=== PATIENT | female | born 1935 | race Caucasian/White ===

== ENCOUNTER 2018-07-22 05:17 | Emergency (ER) | payer MEDICARE ==
[~2018-07-22] VITALS: Ht 177.8 cm; Wt 117.9 kg
--- NOTE | 2018-07-22 05:30 | PHYS DOC ---
Adult General Chief Complaint Chief Complaint: NAUSEA/VOMITING/DIARRHA HPI HPI Patient is a 83 year old f biba with cc of nausea and vomiting x two episodes. woke up felt some abdo discomfort like as though she was going to have some diarrhea. then went to bathroom and threw up a couple of times. no abdominal pain at this time. no chest pain but felt like her heart was racing, she does indeed have a pacemaker. pmh: afib, pacemaker. htn hyperlipidemia meds coumadin lisinopril statin, diltiazem Review of Systems Review of Systems Constitutional: feels warm Eyes: Denies change in visual acuity, redness, or eye pain [] HENT: Denies nasal congestion or sore throat [] Respiratory: Denies cough or shortness of breath [] Cardiovascular: No additional information not addressed in HPI [] GI: hpi. no actual diarrhea. Neurologic: Denies headache, focal weakness or sensory changes [] Endocrine: Denies polyuria or polydipsia [] All other systems were reviewed and found to be within normal limits, except as documented in this note. Current Medications Current Medications Current Medications Medications (Trade) Dose Ordered Sig/Hugh Start Time Stop Time Status Last Admin Dose Admin Potassium Chloride (Klor-Con) 20 meq 1X ONCE 07/22/18 07:15 07/22/18 07:16 DC 07/22/18 07:15 20 MEQ Sodium Chloride 500 ml @ 500 mls/hr 1X ONCE 07/22/18 06:00 07/22/18 06:59 DC 07/22/18 05:52 500 MLS/HR Allergies Allergies Allergies Coded Allergies Type Severity Reaction Last Updated Verified No Known Drug Allergies 07/22/18 No Physical Exam Physical Exam Constitutional: Well developed, well nourished, no acute distress, non-toxic appearance. [] HENT: Normocephalic, atraumatic, bilateral external ears normal, oropharynx moist, no oral exudates, nose normal. [] Eyes: PERRLA, EOMI, conjunctiva normal, no discharge. [] Neck: Normal range of motion, no tenderness, supple, no stridor. [] Cardiovascular irregular no definite murmurs noted. Lungs & Thorax: Bilateral breath sounds clear to auscultation [] Abdomen: Bowel sounds normal, soft, no tenderness, no masses, no pulsatile masses. [] Skin: Warm, dry, no erythema, no rash. [] Back: No tenderness, no CVA tenderness. [] Extremities: No tenderness, no cyanosis, no clubbing, ROM intact, one plus edema. Neurologic: Alert and oriented X 3, normal motor function, normal sensory function, no focal deficits noted. [] Psychologic: Affect normal, judgement normal, mood normal. [] Current Patient Data Vital Signs Vital Signs Date Time Temp Pulse Resp B/P (MAP) Pulse Ox O2 Delivery O2 Flow Rate FiO2 07/22/18 05:19 97.9 105 16 186/87 (120) 99 Room Air 97.9 Lab Values Laboratory Tests Test 07/22/18 05:35 07/22/18 06:20 White Blood Count 10.1 x10^3/uL (4.0-11.0) Red Blood Count 4.42 x10^6/uL (3.50-5.40) Hemoglobin 12.2 g/dL (12.0-15.5) Hematocrit 36.4 % (36.0-47.0) Mean Corpuscular Volume 82 fL (79-100) Mean Corpuscular Hemoglobin 28 pg (25-35) Mean Corpuscular Hemoglobin Concent 34 g/dL (31-37) Red Cell Distribution Width 16.7 % (11.5-14.5) H Platelet Count 203 x10^3/uL (140-400) Neutrophils (%) (Auto) 88 % (31-73) H Lymphocytes (%) (Auto) 7 % (24-48) L Monocytes (%) (Auto) 4 % (0-9) Eosinophils (%) (Auto) 1 % (0-3) Basophils (%) (Auto) 0 % (0-3) Neutrophils # (Auto) 8.8 x10^3uL (1.8-7.7) H Lymphocytes # (Auto) 0.7 x10^3/uL (1.0-4.8) L Monocytes # (Auto) 0.4 x10^3/uL (0.0-1.1) Eosinophils # (Auto) 0.1 x10^3/uL (0.0-0.7) Basophils # (Auto) 0.0 x10^3/uL (0.0-0.2) Platelet Estimate Pending Prothrombin Time 28.8 SEC (11.7-14.0) H Prothrombin Time INR 2.8 (0.8-1.1) H Sodium Level 140 mmol/L (136-145) Potassium Level 3.1 mmol/L (3.5-5.1) L Chloride Level 104 mmol/L (98-107) Carbon Dioxide Level 24 mmol/L (21-32) Anion Gap 12 (6-14) Blood Urea Nitrogen 23 mg/dL (7-20) H Creatinine 1.5 mg/dL (0.6-1.0) H Estimated GFR (Cockcroft-Gault) 33.2 BUN/Creatinine Ratio 15 (6-20) Glucose Level 131 mg/dL (70-99) H Calcium Level 8.9 mg/dL (8.5-10.1) Total Bilirubin 0.5 mg/dL (0.2-1.0) Aspartate Amino Transferase (AST) 19 U/L (15-37) Alanine Aminotransferase (ALT) 25 U/L (14-59) Alkaline Phosphatase 71 U/L (46-116) Troponin I Quantitative < 0.017 ng/mL (0.000-0.055) Total Protein 6.8 g/dL (6.4-8.2) Albumin 3.7 g/dL (3.4-5.0) Albumin/Globulin Ratio 1.2 (1.0-1.7) Lipase 52 U/L (73-393) L Urine Collection Type Unknown Urine Color Yellow Urine Clarity Clear Urine pH 6.5 Urine Specific Farley 1.020 Urine Protein 30 mg/dL (NEG-TRACE) Urine Glucose (UA) Negative mg/dL (NEG) Urine Ketones (Stick) Negative mg/dL (NEG) Urine Blood Negative (NEG) Urine Nitrite Negative (NEG) Urine Bilirubin Negative (NEG) Urine Urobilinogen Dipstick 0.2 mg/dL (0.2 mg/dL) Urine Leukocyte Esterase Trace (NEG) Urine RBC 0 /HPF (0-2) Urine WBC 1-4 /HPF (0-4) Urine Squamous Epithelial Cells Mod /LPF Urine Bacteria 0 /HPF (0-FEW) Urine Mucus Slight /LPF Laboratory Tests 07/22/18 05:35 Laboratory Tests 07/22/18 05:35 EKG EKG [] Interpretation Time: probable afib there is borderline st segments noted in v4-v6. Radiology/Procedures Radiology/Procedures [] Impressions: no definite pna or ptx noted. Course & Med Decision Making Course & Med Decision Making Pertinent Labs and Imaging studies reviewed. (See chart for details) []83 yo f s/p hysterectomy , pacemaker biba with vomiting and some now resolving abdo pain. broad ddx start with labs ekg/trop , u/a, lipase, normal saline. nausea improved after zofran by ems. broad ddx. plan for sign out to dr ma pending labwork and reevaluation Dragon Disclaimer Dragon Disclaimer This electronic medical record was generated, in whole or in part, using a voice recognition dictation system. Departure Departure Impression: Primary Impression: Nausea and vomiting Disposition: HOME, SELF-CARE Condition: STABLE Referrals: ALON RICHEY MD (PCP) Patient Instructions: Nausea and Vomiting Scripts Ondansetron Hcl (ZOFRAN) 4 Mg Tablet 4 MG PO PRN TID PRN for NAUSEA, #15 nausea/vomiting Prov: ROAN MA Jr. DO 07/22/18 Problem Qualifiers Primary Impression: Nausea and vomiting Vomiting type: unspecified Vomiting Intractability: non-intractable Qualified Codes: R11.2 - Nausea with vomiting, unspecified CATHERINE GOMEZ MD Jul 22, 2018 05:29 RONA MA Jr. DO Jul 22, 2018 08:46
[2018-07-22] MEDS ORDERED: IV NORMAL SALINE 500ML BAG 500 ML IV ONE (06:00)
[2018-07-22 06:02] LABS: CALCIUM 8.9 mg/dL (8.5-10.1); CREATININE 1.5 mg/dL (0.6-1.0); GFR 33.2; POTASSIUM 3.1 mmol/L (3.5-5.1)
[2018-07-22 06:03] LABS: BASO % 0 % (0-3); EOS # 0.1 x10^3/uL (0.0-0.7); EOS % 1 % (0-3); HEMATOCRIT 36.4 % (36.0-47.0); HEMOGLOBIN 12.2 g/dL (12.0-15.5); LYMPH # 0.7 x10^3/uL (1.0-4.8); LYMPH % 7 % (24-48); MEAN CORPUSCULAR HEMOGLOBIN 28 pg (25-35); MEAN CORPUSCULAR HGB CONC 34 g/dL (31-37); MEAN CORPUSCULAR VOLUME 82 fL (79-100); MONO # 0.4 x10^3/uL (0.0-1.1); MONO % 4 % (0-9); NEUT # 8.8 x10^3uL (1.8-7.7); NEUT % 88 % (31-73); PLATELET COUNT 203 x10^3/uL (140-400); RED BLOOD COUNT 4.42 x10^6/uL (3.50-5.40); RED CELL DISTRIBUTION WIDTH 16.7 % (11.5-14.5); WHITE BLOOD COUNT 10.1 x10^3/uL (4.0-11.0)
[2018-07-22 06:08] LABS: ALBUMIN 3.7 g/dL (3.4-5.0); ALBUMIN/GLOBULIN RATIO 1.2 (1.0-1.7); TOTAL BILIRUBIN 0.5 mg/dL (0.2-1.0); TOTAL PROTEIN 6.8 g/dL (6.4-8.2)
--- NOTE | 2018-07-22 06:32 | EKG ---
[facility] [address] [place] [address] Test Date: 2018-07-22 Test Time: 05:47:38 Pat Name: ALISON MORLEY Department: Room: Gender: F [employer]: : 1935 Requested By: CATHERINE GOMEZ Order Number: [id number] Reading MD: Alban Bazzi MD Measurements Intervals [place] Rate: 95 P: TX: QRS: 41 QRSD: 100 T: -180 QT: 394 QTc: 499 Interpretive Statements PROBABLE AFIB NON-SPECIFIC ST/T CHANGES Electronically Signed On 07-22-2018 8:16:07 CDT by Alban Bazzi MD
[2018-07-22 07:01] LABS: BILIRUBIN,URINE NEGATIVE (NEG); CLARITY,URINE CLEAR; COLOR,URINE YELLOW; NITRITE,URINE NEGATIVE (NEG); PH,URINE 6.5; PROTEIN,URINE 30 mg/dL (NEG-TRACE); UROBILINOGEN,URINE 0.2 mg/dL (0.2 mg/dL)
[2018-07-22 07:03] LABS: BACTERIA,URINE 0 /HPF (0-FEW); RBC,URINE 0 /HPF (0-2); SQUAMOUS EPITHELIAL CELL,UR MOD /LPF
[2018-07-22] MEDS ORDERED: POTASSIUM CHLORIDE 20 MEQ TABLET.ER. PO ONE (07:15)
--- NOTE | 2018-07-22 07:43 | RAD ---
Portable chest, 07/22/2018: HISTORY: Weakness A left-sided transvenous pacemaker is in place with 2 leads extending into the right heart. The heart is at the upper limits of normal in size. There is calcific plaquing of the aorta. The pulmonary vascularity is normal. No pulmonary infiltrate is seen. There is no evidence of pleural fluid. IMPRESSION: No acute cardiopulmonary abnormality is detected. Electronically signed by: Roly Laswon MD (07/22/2018 7:40 AM) [facility]
[2018-07-22 07:53] LABS: PROTHROMBIN TIME PATIENT 28.8 SEC (11.7-14.0)
[2018-07-22] MEDS ORDERED: ONDA4TAB7 PO (08:45)
[2018-07-22 09:05] VITALS: BP 147/67
[2018-07-22 09:58] LABS: % BANDS 23 % (0-9); % EOS 1 % (0-5); % LYMPHS 5 % (24-48); % MONOS 6 % (0-10); % SEGS 65 % (35-66)
[2018-07-22 10:02] LABS: ANISOCYTOSIS SLIGHT; PLT ESTIMATE ADEQUATE (ADEQUATE)
== END 2018-07-22 09:07 | disposition home or self-care (01) ==
LOC: ER 05:17
DX: R11.2 Nausea with vomiting, unspecified (principal); R19.7 Diarrhea, unspecified
CPT/HCPCS: 36415; 71045; 80053; 81001; 83690; 84484; 85007; 85025; 85610; 87086; 93005; 96360; 99285; J7040

== ENCOUNTER 2018-11-13 00:21 | Emergency (ER) | payer MEDICARE ==
[~2018-11-13] VITALS: Ht 175.3 cm; Wt 117.9 kg
[~2018-11-13 00:21] MED LIST: ONDA4TAB7 PO
[2018-11-13 00:37] VITALS: BP 205/83
--- NOTE | 2018-11-13 01:00 | PHYS DOC ---
Past Medical History Past Medical History: A-Fib, DVT, High Cholesterol, Hypertension Past Surgical History: Hysterectomy, Pacemaker Alcohol Use: None Drug Use: None Adult General Chief Complaint Chief Complaint: ABNORMAL LABS HPI HPI Patient is a 83 year old female who presents with abnormal lab test. Patient performs weekly home INR testing via a self-test. Today her INR was 8. She called the Call in Line for the INR Who referred her to her primary care physician. The primary care physician's office never called her back. Patient denies any other complaints. Patient denies any rectal bleeding, black tarry stools, abnormal bruising or any other concerns. Patient has not been on any recent antibiotics. No recent changes in diet. Patient reports feeling better today than she has in a while. [] Review of Systems Review of Systems Constitutional: Denies fever or chills [] Eyes: Denies change in visual acuity, redness, or eye pain [] HENT: Denies nasal congestion or sore throat [] Respiratory: Denies cough or shortness of breath [] Cardiovascular: No chest pain or palpitations[] GI: Denies abdominal pain, nausea, vomiting, bloody stools or diarrhea [] : Denies dysuria or hematuria [] Musculoskeletal: Denies back pain or joint pain [] Integument: Denies rash or skin lesions [] Neurologic: Denies headache, focal weakness or sensory changes [] Endocrine: Denies polyuria or polydipsia [] All other systems were reviewed and found to be within normal limits, except as documented in this note. Allergies Allergies Allergies Coded Allergies Type Severity Reaction Last Updated Verified No Known Drug Allergies 07/22/18 No Physical Exam Physical Exam Constitutional: Well developed, well nourished, no acute distress, non-toxic appearance. [] HENT: Normocephalic, atraumatic, bilateral external ears normal, oropharynx moist, no oral exudates, nose normal. [] Eyes: PERRLA, EOMI, conjunctiva normal, no discharge. [] Neck: Normal range of motion, no tenderness, supple, no stridor. [] Cardiovascular:Heart rate regular rhythm, no murmur [] Lungs & Thorax: Bilateral breath sounds clear to auscultation [] Abdomen: Bowel sounds normal, soft, no tenderness, no masses, no pulsatile masses. [] Skin: Warm, dry, no erythema, no rash. [] Back: No tenderness, no CVA tenderness. [] Extremities: No tenderness, no cyanosis, no clubbing, ROM intact, no edema. [] Neurologic: Alert and oriented X 3, normal motor function, normal sensory function, no focal deficits noted. [] Psychologic: Affect normal, judgement normal, mood normal. [] Current Patient Data Lab Values Laboratory Tests Test 11/13/18 01:10 White Blood Count 5.3 x10^3/uL (4.0-11.0) Red Blood Count 4.25 x10^6/uL (3.50-5.40) Hemoglobin 11.9 g/dL (12.0-15.5) L Hematocrit 34.9 % (36.0-47.0) L Mean Corpuscular Volume 82 fL (79-100) Mean Corpuscular Hemoglobin 28 pg (25-35) Mean Corpuscular Hemoglobin Concent 34 g/dL (31-37) Red Cell Distribution Width 15.0 % (11.5-14.5) H Platelet Count 261 x10^3/uL (140-400) Neutrophils (%) (Auto) 69 % (31-73) Lymphocytes (%) (Auto) 22 % (24-48) L Monocytes (%) (Auto) 6 % (0-9) Eosinophils (%) (Auto) 2 % (0-3) Basophils (%) (Auto) 1 % (0-3) Neutrophils # (Auto) 3.6 x10^3uL (1.8-7.7) Lymphocytes # (Auto) 1.2 x10^3/uL (1.0-4.8) Monocytes # (Auto) 0.3 x10^3/uL (0.0-1.1) Eosinophils # (Auto) 0.1 x10^3/uL (0.0-0.7) Basophils # (Auto) 0.0 x10^3/uL (0.0-0.2) Prothrombin Time 57.7 SEC (11.7-14.0) H Prothrombin Time INR 6.5 (0.8-1.1) *H Sodium Level 141 mmol/L (136-145) Potassium Level 3.4 mmol/L (3.5-5.1) L Chloride Level 103 mmol/L (98-107) Carbon Dioxide Level 26 mmol/L (21-32) Anion Gap 12 (6-14) Blood Urea Nitrogen 25 mg/dL (7-20) H Creatinine 1.5 mg/dL (0.6-1.0) H Estimated GFR (Cockcroft-Gault) 33.2 Glucose Level 131 mg/dL (70-99) H Calcium Level 9.1 mg/dL (8.5-10.1) Laboratory Tests 11/13/18 01:10 Laboratory Tests 11/13/18 01:10 EKG EKG [] Radiology/Procedures Radiology/Procedures [] Course & Med Decision Making Course & Med Decision Making Pertinent Labs and Imaging studies reviewed. (See chart for details) ED course: Patient arrived, was placed in bed, tolerate exam well. Patient had a straight stick for blood draw which was performed without complication. There was no abnormal bleeding with a straight stick. After the return of the laboratory findings, these were discussed with the patient and her family who voiced understanding. All questions were answered. She was discharged in improved condition. Vision making: There is no evidence of significant anemia or significant change in her baseline renal function. Patient's INR is noted to be elevated however given that there is no active bleeding will allow the INR to improved by withholding medicine. Patient has already taken her Coumadin dose for tonight.[] Dragon Disclaimer Dragon Disclaimer This electronic medical record was generated, in whole or in part, using a voice recognition dictation system. Departure Departure Impression: Primary Impression: Supratherapeutic INR Disposition: HOME, SELF-CARE Condition: GOOD Referrals: ALON RICHEY MD (PCP) Follow-up today Patient Instructions: Warfarin, Questions and Answers Additional Instructions: Follow-up with Dr. Richey today. If you do not get contact with Dr. Richey, do not take any Coumadin today or Friday. He may restart on Friday. With an INR to be checked by your primary care doctor's office on Friday. Return to the ER if there is any bleeding or any other concerns. HUGH CHANDLER DO Nov 13, 2018 01:00
[2018-11-13 01:19] LABS: BASO % 1 % (0-3); EOS # 0.1 x10^3/uL (0.0-0.7); EOS % 2 % (0-3); HEMATOCRIT 34.9 % (36.0-47.0); HEMOGLOBIN 11.9 g/dL (12.0-15.5); LYMPH # 1.2 x10^3/uL (1.0-4.8); LYMPH % 22 % (24-48); MEAN CORPUSCULAR HEMOGLOBIN 28 pg (25-35); MEAN CORPUSCULAR HGB CONC 34 g/dL (31-37); MEAN CORPUSCULAR VOLUME 82 fL (79-100); MONO # 0.3 x10^3/uL (0.0-1.1); MONO % 6 % (0-9); NEUT # 3.6 x10^3uL (1.8-7.7); NEUT % 69 % (31-73); PLATELET COUNT 261 x10^3/uL (140-400); RED BLOOD COUNT 4.25 x10^6/uL (3.50-5.40); WHITE BLOOD COUNT 5.3 x10^3/uL (4.0-11.0)
[2018-11-13 01:28] LABS: CALCIUM 9.1 mg/dL (8.5-10.1); CREATININE 1.5 mg/dL (0.6-1.0); GFR 33.2; POTASSIUM 3.4 mmol/L (3.5-5.1)
[2018-11-13 01:30] LABS: PROTHROMBIN TIME PATIENT 57.7 SEC (11.7-14.0)
== END 2018-11-13 01:45 | disposition home or self-care (01) ==
LOC: ER 00:21
DX: R79.1 Abnormal coagulation profile (principal); I10 Essential (primary) hypertension; E78.00 Pure hypercholesterolemia, unspecified; I48.91 Unspecified atrial fibrillation; Z86.718 Personal history of other venous thrombosis and embolism; Z95.0 Presence of cardiac pacemaker
CPT/HCPCS: 36415; 80048; 85025; 85610; 99283

== ENCOUNTER → 2019-04-30 | Outpatient (CLI) | payer MEDICARE ==
--- NOTE | 2019-04-30 13:49 | CARD ---
MR#: [id number] Date of Study: 04/30/2019 Ordering Physician: RICHARD DONALD, Referring Physician: RICHARD DONALD, Tech: Rosa M Lemos APPROVED REPORT EXAM: Two-dimensional and M-mode echocardiogram with Doppler and color Doppler. Other Information Quality : AverageHR: 98bpm Rhythm : PacemakerTechnically limited study due to body habitus. INDICATION Atrial Fibrillation Surgery/Intervention Pacemaker: RISK FACTORS Hypertension Hyperlipidemia 2D DIMENSIONS RVDd2.3 (2.9-3.5cm)Left Atrium(2D)4.6 (1.6-4.0cm) IVSd2.0 (0.7-1.1cm)Aortic Root(2D)3.0 (2.0-3.7cm) LVDd5.0 (3.9-5.9cm)LVOT Diameter2.2 (1.8-2.4cm) PWd1.4 (0.7-1.1cm)LVDs3.7 (2.5-4.0cm) FS (%) 27.3 %SV63.2 ml Aortic Valve AoV Peak Saumel.225.3cm/sAoV VTI60.0cm AO Peak GR.20.3mmHgLVOT Peak Samuel.87.4cm/s LVOT VTI 14.91cmAO Mean GR.18mmHg RACHAEL (VMAX)1.51lu6OAB (VTI)0.92cm2 AI P 1/2 Lzjn250bx Mitral Valve MV E Abvlgivh47.7cm/sMV DECEL ERND816ls MV A Whckszye20.1cm/sMV NZO68sf E/A Ratio2.5MVA (PHT)4.50cm2 TDI E/Lateral E'8.2E/Medial E'15.9 Pulmonary Valve PV Peak Dlrzzuya704.1cm/sPV Peak Grad.9mmHg Tricuspid Valve TR P. Uacnaunm263yu/sRAP GVIWSQAB5pvLu TR Peak Gr.61rlLsDZPU34yyLj Pulmonary Vein S1 Somrlzih49.5cm/sD2 Shlddvnh51.8cm/s PVa qykkuwws293hwml LEFT VENTRICLE The left ventricle is normal size. There is moderate concentric left ventricular hypertrophy. The lef t ventricular systolic function is normal and the ejection fraction is within normal range. The Eject ion Fraction is 55-60%. There is normal LV segmental wall motion. The left ventricular diastolic func tion and filling is normal for age. RIGHT VENTRICLE The right ventricle is normal size. The right ventricle is mildly hypertrophied. The right ventricula r systolic function is normal. There are device leads in the right ventricle and atrium. ATRIA The left atrium is borderline dilated. The right atrium is borderline dilated. There is a device lead seen in the right atrium. The interatrial septum is intact with no evidence for an atrial septal def ect or patent foramen ovale as noted on 2-D or Doppler imaging. AORTIC VALVE The aortic valve is calcified. Doppler and Color Flow revealed trace to mild aortic regurgitation. Ca lculated aortic valve maximum pressure gradient of 20 mmHg and mean pressure gradient of 18 mmHg. The re is moderate valvular aortic stenosis. MITRAL VALVE The mitral valve is normal in structure and function. There is no evidence of mitral valve prolapse. There is no mitral valve stenosis. Doppler and Color-flow revealed trace mitral regurgitation. TRICUSPID VALVE The tricuspid valve is normal in structure and function. Doppler and Color Flow revealed trace to mil d tricuspid regurgitation with an estimated PAP of 36 mmHg. There is no tricuspid valve stenosis. PULMONIC VALVE The pulmonic valve is not well visualized. Doppler and Color Flow revealed trace pulmonic valvular re gurgitation. GREAT VESSELS The aortic root is normal in size. The IVC is normal in size and collapses >50% with inspiration. PERICARDIAL EFFUSION There is no evidence of significant pericardial effusion. Critical Notification Critical Value: No <Conclusion> The left ventricle is normal size. The left ventricular systolic function is normal and the ejection fraction is within normal range. The Ejection Fraction is 55-60%. There is moderate concentric left ventricular hypertrophy. There are device leads in the right ventricle and atrium. Calculated aortic valve maximum pressure gradient of 20 mmHg and mean pressure gradient of 18 mmHg. There is moderate valvular aortic stenosis. Doppler and Color Flow revealed trace to mild aortic regurgitation. Doppler and Color-flow revealed trace mitral regurgitation. Doppler and Color Flow revealed trace to mild tricuspid regurgitation with an estimated PAP of 36 mm Hg. Signed by : Pacheco Valencia MD Electronically Approved : 04/30/2019 13:49:02
== END | disposition home or self-care (01) ==
LOC: ECHO 09:54
PROVIDERS: ATTEND Internal Medicine Cardiovascular Disease
DX: I08.2 Rheumatic disorders of both aortic and tricuspid valves (principal); I11.9 Hypertensive heart disease without heart failure; E78.5 Hyperlipidemia, unspecified; I48.2 Chronic atrial fibrillation
CPT/HCPCS: 93306

== ENCOUNTER → 2021-12-31 | Outpatient (CLI) | payer BC, MEDICARE ==
[2019-12-30 11:00] VITALS: BP 129/50
[~2021-12-31] MED LIST changes: +HYDR-3164 PO; +WARF-31 PO
--- NOTE | 2021-12-31 16:35 | KCIC ---
EXAM: XR HAND_LEFT 3 VIEWS 12/31/2021 2:19 PM CLINICAL INDICATION: Left hand swelling, pain COMPARISON: None TECHNIQUE: 3 views of the left hand FINDINGS: No acute fracture. There is severe asymmetric joint space narrowing of the thumb MCP and I P joint with prominent osteophytes. Mild narrowing throughout the rest of the interphalangeal joints with small osteophytes at the second IP joints. There is slight ulnar deviation of the second PIP bethel nt. No erosions. There is mild/moderate degenerative joint disease of the first CMC joint with small ossicles about the joint. No focal soft tissue abnormality. IMPRESSION: 1. 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 2. Mild degenerative joint disease throughout the rest of the interphalangeal joints. Electronically signed by: Asmita Dow MD (12/31/2021 4:33 PM) [id number]
== END ==
LOC: KCIC 14:15
PROVIDERS: ATTEND Family Medicine
DX: M19.042 Primary osteoarthritis, left hand (principal); M25.742 Osteophyte, left hand; M25.462 Effusion, left knee
CPT/HCPCS: 73130

== ENCOUNTER → 2022-01-08 | Outpatient (CLI) | payer BC, MEDICARE ==
[2019-12-30 11:00] VITALS: BP 129/50
--- NOTE | 2022-01-09 10:52 | CARD ---
MR#: [id number] Date of Study: 01/08/2022 Ordering Physician: RICHARD DONALD, Referring Physician: Raul KIRBY: Marco A Baker [facility] APPROVED REPORT EXAM: Two-dimensional and M-mode echocardiogram with Doppler and color Doppler. Other Information Quality : FairHR: 101bpm Rhythm : Atrial Fibrillation INDICATION Atrial Fibrillation Surgery/Intervention Pacemaker: RISK FACTORS Hypertension Obesity 2D DIMENSIONS Left Atrium(2D)5.0 (1.6-4.0cm)IVSd1.3 (0.7-1.1cm) Aortic Root(2D)2.3 (2.0-3.7cm)LVDd3.6 (3.9-5.9cm) LVOT Diameter1.9 (1.8-2.4cm)PWd1.3 (0.7-1.1cm) LVDs2.4 (2.5-4.0cm)FS (%) 33.3 % SV33.2 ml Aortic Valve AoV Peak Samuel.345.9cm/sAoV VTI62.5cm AO Peak GR.47.9mmHgLVOT Peak Samuel.108.0cm/s LVOT VTI 18.99cmAO Mean GR.31mmHg RACHAEL (VMAX)0.53fo1VYP (VTI)0.89cm2 Pulmonary Valve PV Peak Corbnuzh169.0cm/sPV Peak Grad.12mmHg Tricuspid Valve TR P. Ztxlziek022pn/sTR Peak Gr.28mmHg Pulmonary Vein S1 Ohunzygq67.3cm/sD2 Jfpwepzf37.1cm/s LEFT VENTRICLE The left ventricle is normal size. There is mild concentric left ventricular hypertrophy. The left ve ntricular systolic function is normal and the ejection fraction is within normal range. Left ventricu lar ejection fraction is 55 to 60%. There is normal LV segmental wall motion. Diastolic function was not assessed due to atrial fibrillaton. No left ventricle thrombus noted on this study. There is no v entricular septal defect visualized. There is no left ventricular aneurysm. There is no mass noted in the left ventricle. RIGHT VENTRICLE The right ventricle is normal size. There is normal right ventricular wall thickness. The right ventr icular systolic function is normal. There is a device lead in the right ventricle. ATRIA The left atrium is mild to moderately dilated. The right atrium size is normal. The interatrial septu m is intact with no evidence for an atrial septal defect or patent foramen ovale as noted on 2-D or D oppler imaging. AORTIC VALVE The aortic valve is moderately to severely calcified. Doppler and Color Flow revealed no significant aortic regurgitation. There is moderate to severe valvular aortic stenosis. Aortic valve maximum pres sure gradient of 46 mmHg and mean pressure gradient of 30 mmHg. There is no aortic valvular vegetatio n. MITRAL VALVE The mitral valve is thickened but opens well. There is no evidence of mitral valve prolapse. There is no mitral valve stenosis. Doppler and Color-flow revealed mild mitral regurgitation. TRICUSPID VALVE The tricuspid valve is normal in structure and function. Doppler and Color Flow revealed mild tricusp id regurgitation. The PA pressure was estimated at 46 mmHg. There is no tricuspid valve prolapse or v egetation. There is no tricuspid valve stenosis. PULMONIC VALVE The pulmonic valve is not well seen. Doppler and Color Flow revealed no pulmonic valvular regurgitati on. There is no pulmonic valvular stenosis. GREAT VESSELS The aortic root is normal in size. The ascending aorta is normal in size. The pulmonary artery is nor mal. The IVC is normal in size and collapses >50% with inspiration. PERICARDIAL EFFUSION There is no pleural effusion. There is no evidence of significant pericardial effusion. Critical Notification Critical Value: No <Conclusion> The left ventricle is normal size. The left ventricular systolic function is normal and the ejection fraction is within normal range. Left ventricular ejection fraction is 55 to 60%. There is mild concentric left ventricular hypertrophy. There is a device lead in the right ventricle. The aortic valve is moderately to severely calcified. Doppler and Color Flow revealed no significant aortic regurgitation. There is moderate to severe valvular aortic stenosis. Aortic valve maximum pressure gradient of 46 mmHg and mean pressure gradient of 30 mmHg. Doppler and Color-flow revealed mild mitral regurgitation. Doppler and Color Flow revealed mild tricuspid regurgitation. The PA pressure was estimated at 46 mmHg. Signed by : Pacheco Valencia MD Electronically Approved : 01/09/2022 10:51:17
== END ==
LOC: ECHO 13:13
PROVIDERS: ATTEND Internal Medicine Cardiovascular Disease
DX: I08.3 Combined rheumatic disorders of mitral, aortic and tricuspid valves (principal); I48.21 Permanent atrial fibrillation
CPT/HCPCS: 93306; C8929

== ENCOUNTER 2022-02-05 13:53 | Emergency (ER) | payer BC, MEDICARE ==
[~2022-02-05] VITALS: Ht 175.3 cm; Wt 136.4 kg
[2022-02-05] MEDS ORDERED: fentaNYL PF VIAL 100 MCG/2 ML VIAL IVP ONE (14:30)
[2022-02-05 15:05] LABS: BASO % 0 % (0-3); EOS % 0 % (0-3); HEMATOCRIT 31.9 % (36.0-47.0); HEMOGLOBIN 9.8 g/dL (12.0-15.5); LYMPH # 0.4 x10^3/uL (1.0-4.8); LYMPH % 5 % (24-48); MEAN CORPUSCULAR HEMOGLOBIN 22 pg (25-35); MEAN CORPUSCULAR HGB CONC 31 g/dL (31-37); MEAN CORPUSCULAR VOLUME 72 fL (79-100); MONO # 0.6 x10^3/uL (0.0-1.1); MONO % 6 % (0-9); NEUT # 8.4 x10^3/uL (1.8-7.7); NEUT % 89 % (31-73); PLATELET COUNT 262 x10^3/uL (140-400); RED BLOOD COUNT 4.43 x10^6/uL (3.50-5.40); RED CELL DISTRIBUTION WIDTH 20.1 % (11.5-14.5); WHITE BLOOD COUNT 9.5 x10^3/uL (4.0-11.0)
--- NOTE | 2022-02-05 15:06 | RAD ---
Right upper extremity venous duplex study 02/05/2022 3:03 PM Clinical History: Right upper extremity and hand swelling: Technique: Using a combination of real time ultrasound imaging and color-flow and pulse Doppler imagi ng techniques, including spectral analysis, graded compression and augmentation, duplex evaluation of the deep venous system of the right upper extremity was performed. Multiple images were obtained. Findings: There is no sonographic evidence of deep venous thrombosis involving the visualized deep ve nous structures of the right upper extremity Impression: No evidence of deep venous thrombosis involving the right upper extremity Electronically signed by: Rylan Mariano MD (02/05/2022 3:04 PM) [id number]
[2022-02-05 15:14] LABS: PROTHROMBIN TIME PATIENT 19.6 SEC (11.7-14.0)
[2022-02-05 15:16] LABS: CALCIUM 8.8 mg/dL (8.5-10.1); CREATININE 1.4 mg/dL (0.6-1.0); GFR 35.6; POTASSIUM 3.7 mmol/L (3.5-5.1)
[2022-02-05 15:26] LABS: BILIRUBIN,URINE NEGATIVE (NEG); CLARITY,URINE HAZY; COLOR,URINE AMBER; NITRITE,URINE NEGATIVE (NEG); PH,URINE 5.5 (<5.0-8.0); PROTEIN,URINE 30 mg/dL (NEG-TRACE); UROBILINOGEN,URINE 0.2 mg/dL (0.2 mg/dL)
[2022-02-05 15:28] LABS: BACTERIA,URINE FEW /HPF (0-FEW); HYALINE CASTS, URINE FEW /HPF
[2022-02-05 15:31] LABS: ALBUMIN 3.4 g/dL (3.4-5.0); ALBUMIN/GLOBULIN RATIO 0.9 (1.0-1.7); MAGNESIUM 1.7 mg/dL (1.8-2.4); PHOSPHORUS 2.7 mg/dL (2.6-4.7); TOTAL BILIRUBIN 1.1 mg/dL (0.2-1.0)
[2022-02-05 15:41] LABS: C-REACTIVE PROTEIN 66.8 mg/L (0-3.3)
[2022-02-05 15:57] LABS: ANISOCYTOSIS MOD; HYPOCHROMIA SLIGHT; PLT ESTIMATE ADEQUATE (ADEQUATE)
--- NOTE | 2022-02-05 15:58 | RAD ---
Right HAND, VIEWS 3 Right WRIST, 3 VIEWS Indication: Pain with erythema and swelling. Hand Findings: No acute fracture or dislocation. There is joint space narrowing, most apparent distal. Mild dorsal s oft tissue swelling of the hand. No bone erosion is seen. Mineralization is normal. Arterial calcific ations are noted. Wrist findings: There is no acute fracture or dislocation. There is soft tissue swelling of the wrist most apparent m edial and dorsal. There is triscaphe joint narrowing. IMPRESSION: 1. There is no acute fracture or erosive changes. 2. Soft tissue swelling. Electronically signed by: Tate Bermudez MD (02/05/2022 3:55 PM) [id number]
--- NOTE | 2022-02-05 16:27 | PHYS DOC ---
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 Patient reports she has experienced right wrist and hand discomfort with swelling of her right lower arm for the past 2 days. Patient denies injury to this right arm hand or wrist. Patient states she lives at home alone. Reports a 4 out of 10 pain while at rest, increases to a 10 out of 10 pain when palpated. Patient reports a throbbing stabbing sensation. Patient reports a past medical history of atrial fibrillation, denies pulmonary emboli or DVT history, denies history of gouty arthritis. Patient denies chest pains, chest palpitations, shortness of breath, chest or nasal congestion, recent fever or chills patient denies nausea, vomitin g, diarrhea, denies increased urinary frequency, urinary pressure, urinary burning, hematuria or other dysuria. Patient denies other physical complaints or physical concerns. Review of Systems: Review of Systems: 14 body systems of review of systems have been reviewed. See HPI for pertinent positives and negative responses, otherwise all other systems are negative, nonpertinent or noncontributory. Constitutional: Negative except as outlined in HPI above. Skin: Negative except as outlined in HPI above. Eyes: Negative except as outlined in HPI above. HENT: Negative except as outlined in HPI above. Respiratory: Negative except as outlined in HPI above. Cardiovascular: Negative except as outlined in HPI above. GI: Negative except as outlined in HPI above. : Negative except as outlined in HPI above. Musculoskeletal: Negative except as outlined in HPI above. Integument: Negative except as outlined in HPI above. Neurologic: Negative except as outlined in HPI above. Endocrine: Negative except as outlined in HPI above. Lymphatic: Negative except as outlined in HPI above. Psychiatric: Negative except as outlined in HPI above. Heart Score: C/O Chest Pain: No Risk Factors: Risk Factors: DM, Current or recent (<one month) smoker, HTN, HLP, family history of CAD, obesity. Risk Scores: Score 0 - 3: 2.5% MACE over next 6 weeks - Discharge Home Score 4 - 6: 20.3% MACE over next 6 weeks - Admit for Clinical Observation Score 7 - 10: 72.7% MACE over next 6 weeks - Early Invasive Strategies Current Medications: Current Medications Medications (Trade) Dose Ordered Sig/[facility] Start Time Stop Time Status Last Admin Dose Admin Fentanyl Citrate (Fentanyl 2ml Vial) 25 mcg 1X ONCE 02/05/22 14:30 02/05/22 14:31 DC Allergies: Allergies: Allergies Coded Allergies Type Severity Reaction Last Updated Verified No Known Drug Allergies 02/05/22 No Physical Exam: PE: Constitutional: Well developed, well nourished, no acute distress, non-toxic appearance. 87-year-old female in no apparent distress. HENT: Normocephalic, atraumatic. Eyes: Conjunctiva normal, no discharge. Neck: Normal range of motion, no stridor. Cardiovascular: No cyanosis appreciated, distal cap refill less than 2 seconds. Regular rate and rhythm for auscultation. Lungs & Thorax: Patient is in no respiratory distress, lungs are clear to auscultation all lung gore Abdomen: Nontender, no abnormalities noted. Skin: Warm, dry, no erythema, no rash. See extremity note for focused skin examination. Back: No tenderness, no deformities. Extremities: No tenderness, no cyanosis, no clubbing, ROM intact, no edema. T here is mild swelling to the distal third of forearm with erythema to the posterior skin surfaces extending to top of hand and to middle finger at PIP joint skin surfaces. Increased pain to palpation, very warm to touch, limited passive range of motion related to pain. Distal cap refill is equal and less than 2 seconds bilateral upper extremities, 2+ radial pulses equal bilateral upper extremities. The skin is intact. There is no crepitus or deformity appreciated. Neurologic: Alert and oriented X 3, normal motor function, normal sensory function, no focal deficits noted. Psychologic: Affect normal, judgement normal, mood normal. Current Patient Data: Labs: Laboratory Tests Test 02/05/22 14:40 02/05/22 15:09 White Blood Count 9.5 x10^3/uL (4.0-11.0) Red Blood Count 4.43 x10^6/uL (3.50-5.40) Hemoglobin 9.8 g/dL (12.0-15.5) L Hematocrit 31.9 % (36.0-47.0) L Mean Corpuscular Volume 72 fL (79-100) L Mean Corpuscular Hemoglobin 22 pg (25-35) L Mean Corpuscular Hemoglobin Concent 31 g/dL (31-37) Red Cell Distribution Width 20.1 % (11.5-14.5) H Platelet Count 262 x10^3/uL (140-400) Neutrophils (%) (Auto) 89 % (31-73) H Lymphocytes (%) (Auto) 5 % (24-48) L Monocytes (%) (Auto) 6 % (0-9) Eosinophils (%) (Auto) 0 % (0-3) Basophils (%) (Auto) 0 % (0-3) Neutrophils # (Auto) 8.4 x10^3/uL (1.8-7.7) H Lymphocytes # (Auto) 0.4 x10^3/uL (1.0-4.8) L Monocytes # (Auto) 0.6 x10^3/uL (0.0-1.1) Eosinophils # (Auto) 0.0 x10^3/uL (0.0-0.7) Basophils # (Auto) 0.0 x10^3/uL (0.0-0.2) Platelet Estimate Adequate (ADEQUATE) Hypochromasia Slight Anisocytosis Mod Prothrombin Time 19.6 SEC (11.7-14.0) H Prothrombin Time INR 1.7 (0.8-1.1) H Sodium Level 137 mmol/L (136-145) Potassium Level 3.7 mmol/L (3.5-5.1) Chloride Level 99 mmol/L (98-107) Carbon Dioxide Level 28 mmol/L (21-32) Anion Gap 10 (6-14) Blood Urea Nitrogen 27 mg/dL (7-20) H Creatinine 1.4 mg/dL (0.6-1.0) H Estimated GFR (Cockcroft-Gault) 35.6 BUN/Creatinine Ratio 19 (6-20) Glucose Level 155 mg/dL (70-99) H Lactic Acid Level 1.9 mmol/L (0.4-2.0) Uric Acid 10.0 mg/dL (2.6-6.0) H Calcium Level 8.8 mg/dL (8.5-10.1) Phosphorus Level 2.7 mg/dL (2.6-4.7) Magnesium Level 1.7 mg/dL (1.8-2.4) L Total Bilirubin 1.1 mg/dL (0.2-1.0) H Aspartate Amino Transferase (AST) 13 U/L (15-37) L Alanine Aminotransferase (ALT) 17 U/L (14-59) Alkaline Phosphatase 54 U/L (46-116) C-Reactive Protein, Quantitative 66.8 mg/L (0-3.3) H Total Protein 7.0 g/dL (6.4-8.2) Albumin 3.4 g/dL (3.4-5.0) Albumin/Globulin Ratio 0.9 (1.0-1.7) L Urine Collection Type Unknown Urine Color Irasema Urine Clarity Hazy Urine pH 5.5 (<5.0-8.0) Urine Specific [place] 1.025 (1.000-1.030) Urine Protein 30 mg/dL (NEG-TRACE) Urine Glucose (UA) Negative mg/dL (NEG) Urine Ketones (Stick) Negative mg/dL (NEG) Urine Blood Negative (NEG) Urine Nitrite Negative (NEG) Urine Bilirubin Negative (NEG) Urine Urobilinogen Dipstick 0.2 mg/dL (0.2 mg/dL) Urine Leukocyte Esterase Trace (NEG) Urine RBC 1-2 /HPF (0-2) Urine WBC 5-10 /HPF (0-4) Urine Squamous Epithelial Cells Few /LPF Urine Bacteria Few /HPF (0-FEW) Urine Hyaline Casts Few /HPF Urine Mucus Slight /LPF Laboratory Tests 02/05/22 14:40 Laboratory Tests 02/05/22 14:40 Vital Signs: Vital Signs Date Time Temp Pulse Resp B/P (MAP) Pulse Ox O2 Delivery O2 Flow Rate FiO2 02/05/22 13:54 99.7 111 18 157/78 (104) 97 Room Air 99.7 EKG: EKG: EKG performed at 1431 by ED nursing staff shows atrial fibrillation controlled rate 103 bpm, QTc interval 0.482, no acute STEMI, no ACS, no acute ischemia appreciated, EKG interpreted by ED attending physician Dr. Nolasco. Radiology/Procedures: Radiology/Procedures: REASON: Painful swelling; RT Hand Swelling PROCEDURE: VENOUS UPPER EXTREMITY RIGHT Right upper extremity venous duplex study 02/05/2022 3:03 PM Clinical History: Right upper extremity and hand swelling: Technique: Using a combination of real time ultrasound imaging and color-flow and pulse Doppler imaging techniques, including spectral analysis, graded compression and augmentation, duplex evaluation of the deep venous system of the right upper extremity was performed. Multiple images were obtained. Findings: There is no sonographic evidence of deep venous thrombosis involving the visualized deep venous structures of the right upper extremity Impression: No evidence of deep venous thrombosis involving the right upper extremity Electronically signed by: Rylan Mariano MD (02/05/2022 3:04 PM) [id number] REASON: Pain with erythema and swelling PROCEDURE: HAND RIGHT 3V Right HAND, VIEWS 3 Right WRIST, 3 VIEWS Indication: Pain with erythema and swelling. Hand Findings: No acute fracture or dislocation. There is joint space narrowing, most apparent distal. Mild dorsal soft tissue swelling of the hand. No bone erosion is seen. Mineralization is normal. Arterial calcifications are noted. Wrist findings: There is no acute fracture or dislocation. There is soft tissue swelling of the wrist most apparent medial and dorsal. There is triscaphe joint narrowing. IMPRESSION: 1. There is no acute fracture or erosive changes. 2. Soft tissue swelling. Electronically signed by: Tate Bermudez MD (02/05/2022 3:55 PM) [id number] Course & Med Decision Making: Course & Med Decision Making Pertinent Labs and Imaging studies reviewed. (See chart for details) 87-year-old female, vital signs reviewed, presents to the emergency department concerning erythematous swollen right upper extremity distal third forearm extending to hand and middle finger. Physical examination concerning for gouty arthritis versus other infectious process or DVT. Will order sonogram study of right upper extremity. X-ray of right upper extremity. CBC, CMP, lactic acid with reflex, magnesium, phosphorus, PT with INR, urinalysis assay, will give IV pain medication. Will also order uric acid level, sed rate, C-reactive protein, CT head without contrast related to patient's family members reporting patient has been acting confused lately however patient is alert and oriented x3. Patient's labs and ED work-up consistent with gouty arthritis. Supportive of inflammatory arthritic process, unlikely septic joint arthritis process. Patient's pain is not out of proportion to physical presentation and examinat ion. Patient does not recall a history of gouty arthritis. I called and discussed patient case and ED work-up with patient's primary care provider Dr. Richey who is well familiar with the patient, recommends patient be started on prednisone 20 mg twice daily in addition to her normal 10 mg prednisone dosing for polymyalgia rheumatica. Dr. Richey wants the patient to call the office Wally morning and if not better to come in to the office for examination. Continue all other home medications. I discussed Dr. Richey's recommendations with patient who is amenable to ED discharge planning. Discussed with the patient all findings and diagnostic testing as well as the need to follow-up with their primary care provider for further evaluation and treatment or return to the ED if any new or worsening symptoms. Strict return precautions were also discussed at length, the patient voiced understanding and agreement with the discharge planning. The patient was nontoxic in appearance, in no apparent distress, and hemodynamically stable at the time of disposition. Dragon Disclaimer: Jumpido Disclaimer: This electronic medical record was generated, in whole or in part, using a voice recognition dictation system. Departure Departure Impression: Primary Impression: Gout attack Qualified Codes: M10.9 - Gout, unspecified Additional Impressions: Right wrist pain Right hand and foot pain Disposition: HOME / SELF CARE / HOMELESS Admitting Physician: Alon Richey Condition: GOOD Referrals: ALON RICHEY MD (PCP) Patient Instructions: Gout Additional Instructions: You were seen today in the emergency department for pain to your right wrist for the past 2 days. Your lab work and x-ray imaging indicates that this is a gout arthritis flareup. You were treated today in the emergency department with 25 mcg of fentanyl for pain. You were also given 40 mg of prednisone p.o. for pain and swelling. I spoke with your primary care physician Dr. Richey who wants you to take an additional 20 mg of prednisone twice a day for the next [address] Rihcey wants you to call his office Friday morning if you are not doing better and he will see you for further evaluation and treatment of your gout flareup. Please refrain from foods high in purine's such as organ meats. Please return to the emergency department for worsening symptoms or other concerns. Thank you for visiting our Emergency Department. It was a pleasure taking care of you today in the emergency department and we appreciate you trusting us with your care. If any additional problems come up don't hesitate to return to visit us. Please follow up with your primary care provider so they can plan additional care if needed and know about the problem that you had. If symptoms worsen come back to the Emergency Department. Any concerning symptoms that start such as chest pain, shortness of air, weakness or numbness on one side of the body, running high fevers or any other concerning symptoms return to the ER. Scripts Prednisone (PREDNISONE) 20 Mg Tablet 1 TAB PO BID for 5 Days, #10 TAB 0 Refills Take 1 tablet twice a day for 5 days Prov: CYNTHIA CHRISTIE APRN 02/05/22 CYNTHIA CHRISTIE APRN Feb 05, 2022 16:27
--- NOTE | 2022-02-05 16:34 | RAD ---
EXAM: CT Head without IV contrast CLINICAL HISTORY: Reason: Confusion / Spl. Instructions: / History: COMPARISON: None. TECHNIQUE: Routine CT of the head without contrast. PQRS compliance statement - One or more of the following individualized dose reduction techniques wer e utilized for this study: 1. Automated exposure control 2. Adjustment of the mA and/or kV according to patient size 3. Use of iterative reconstruction technique FINDINGS: There is no evidence of hemorrhage, mass or extra-axial fluid collection. Cantu-white differentiation is maintained with no evidence of edema. Subcortical, periventricular as w ell as deep white matter foci of hypoattenuation likely changes of chronic small vessel disease. There is no mass effect or shift of the intracranial structures. The ventricles, basilar cisterns and cortical sulci are normal in size and configuration for the nolan ents stated age. The cerebellum and brainstem are unremarkable. The calvarium demonstrates no evidence of fracture or focal lesion. There is normal aeration of the visualized paranasal sinuses and mastoid air cells. The visualized portions of the orbits are normal. Atherosclerotic calcifications of the intracranial internal carotid and vertebral arteries is seen. IMPRESSION: 1. No evidence for acute intracranial process. 2. White matter changes likely of chronic small vessel disease. Electronically signed by: Doug Dangelo MD (02/05/2022 4:31 PM) [place]
[2022-02-05] MEDS ORDERED: KETOROLAC 15 MG/ML VIAL. IVP ONE (17:00)
[2022-02-05] MEDS ORDERED: PRED20TA PO (17:21)
[2022-02-05] MEDS ORDERED: predniSONE 20 MG TABLET PO ONE (17:30)
[2022-02-05 17:33] VITALS: BP 186/91
--- NOTE | 2022-02-05 18:48 | EKG ---
[facility] [address] [place] [address] Test Date: 2022-02-05 Test Time: 14:31:15 Pat Name: ALISON MORLEY Department: Room: Gender: F [employer] Production Manager: : [id number] Requested By: CYNTHIA CHRISTIE Order Number: [id number] Reading MD: Froilan Langford Measurements Intervals [place] Rate: 103 P: RI: QRS: 38 QRSD: 94 T: 164 QT: 366 QTc: 482 Interpretive Statements ATRIAL FIBRILLATION LEFT VENTRICULAR HYPERTROPHY Electronically Signed On 02-07-2022 8:34:50 DYNAMITER by Froilan Langford
== END 2022-02-05 17:55 | disposition home or self-care (01) ==
LOC: ER 13:53
DX: M10.9 Gout, unspecified (principal); M79.641 Pain in right hand; M25.531 Pain in right wrist; I48.91 Unspecified atrial fibrillation; E78.00 Pure hypercholesterolemia, unspecified; I10 Essential (primary) hypertension; Z86.718 Personal history of other venous thrombosis and embolism; Z95.0 Presence of cardiac pacemaker; Z90.710 Acquired absence of both cervix and uterus
CPT/HCPCS: 36415; 70450; 73110; 73130; 80053; 81001; 83605; 83735; 84100; 84550; 85025; 85610; 85651; 86140; 87040; 87086; 93005; 93971; 96374; 99285; J3010; J7512